=== PATIENT | male | born 2000 | race Caucasian/White ===

== ENCOUNTER 2024-10-24 00:01 | Emergency (ER) | payer BC ==
--- NOTE | 2024-10-24 00:19 | ERPHSYRPT ---
- History of Present Illness Time Seen by Provider: 10/24/24 00:19 Source: patient Exam Limitations: no limitations Allergies/Adverse Reactions: No Known Drug Allergies Allergy (Verified 10/24/24 00:24) Home Medications: No Reportable Medications [No Reported Medications] 10/24/24 [History] Hx Tetanus, Diphtheria Vaccination/Date Given: Yes Hx Influenza Vaccination/Date Given: No Hx Pneumococcal Vaccination/Date Given: No - Past Medical History Pertinent Past Medical History: Yes Neurological History: No Pertinent History ENT History: No Pertinent History Cardiac History: No Pertinent History Respiratory History: No Pertinent History Endocrine Medical History: No Pertinent History Musculoskeletal History: No Pertinent History GI Medical History: Irritable Bowel History: No Pertinent History Psycho-Social History: No Pertinent History Male Reproductive Disorders: No Pertinent History Other Medical History: LACTOSE INTOLERANT. BLOOD IN STOOL FOR ABOUT DECEMBER. HYPOGLYCEMIA AT TIMES - Past Surgical History Past Surgical History: Yes Neuro Surgical History: No Pertinent History Cardiac: No Pertinent History Respiratory: No Pertinent History Gastrointestinal: No Pertinent History Genitourinary: No Pertinent History Musculoskeletal: No Pertinent History Male Surgical History: No Pertinent History Other Surgical History: COLONSCOPY/EGD - Social History Smoking Status: Never smoker Exposure to second hand smoke: No Drug Use: none Patient Lives Alone: No - Nursing Vital Signs Nursing Vital Signs: Initial Vital Signs Temperature 98.6 F 10/24/24 00:02 Pulse Rate 125 H 10/24/24 00:02 Respiratory Rate 18 10/24/24 00:02 Blood Pressure 153/92 10/24/24 00:02 O2 Sat by Pulse Oximetry 96 10/24/24 00:02 Pain Scale Pain Intensity 5 Ordered Tests: Active Orders 24 hr Category Date Time Status CERVICAL SPINE WO CONTRAST [CT] Stat Exams 10/24/24 00:19 Completed FACIAL BONES WO CONTRAST [CT] Stat Exams 10/24/24 00:19 Completed HEAD WITHOUT CONTRAST [CT] Stat Exams 10/24/24 00:19 Completed ETHYL ALCOHOL Stat Lab 10/24/24 00:45 Completed Medication Summary Discontinued Medications Generic Name Dose Route Start Last Admin Trade Name Freq PRN Reason Stop Dose Admin Acetaminophen 975 mg 10/24/24 00:21 10/24/24 00:31 Acetaminophen 325 Mg Tablet PO 10/24/24 00:22 975 mg STAT STA Administration Acetaminophen Confirm 10/24/24 00:31 Acetaminophen 325 Mg Tablet Administered 10/24/24 00:32 Dose 975 mg .ROUTE .STK-MED ONE Lidocaine HCl Confirm 10/24/24 02:09 Lidocaine Hcl 1% 20 Ml Mdv 20 Ml Ml Administered 10/24/24 02:10 Dose 10 ml .ROUTE .STK-MED ONE Lab/Rad Data: Laboratory Results 10/24/24 Range/Units 00:45 Ethyl Alcohol 316 H (0-10) mg/dL - Departure Departure Disposition: Long-Term/Shelter Clinical Impression: Abrasion head, Traumatic hematoma of face, Post-traumatic headache, Alcohol intoxication Condition: Good Critical Care Time: No Instructions: Concussion, Adult (DC), Head Injury in Adults (DC)
[2024-10-24 00:21] VITALS: RESP 18; TEMP 98.6
[2024-10-24] MEDS: TYLENOL 325 MG PO STA (00:31)
[2024-10-24] MEDS ORDERED: TYLENOL 325 MG ONE (00:31)
--- NOTE | 2024-10-24 01:53 | XRAY ---
CLINICAL HISTORY: facial trauma, headache COMPARISON: - TECHNIQUE: Computed tomography of the cervical spine performed without intravenous contrast. Contiguous axial images were obtained from the skull base to T2, with sagittal and coronal reformatted images reconstructed from the axial data. CT scan was performed according to ALARA (as low as reasonably achievable). FINDINGS: Straightening of spine noted likely due to muscular spasm. Mild reduction in the heights of C5 and C6 vertebra. The rest of the cervical vertebral bodies are normal in height and alignment, with no evidence of fracture or subluxation. Lateral masses of C1 are symmetrical, and the dens is intact. Prevertebral soft tissues are not widened. The remaining suprahyoid and infrahyoid soft tissues in the neck are unremarkable. C2-C3: No disc bulge, mass effect on the cord or neuroforaminal narrowing. C3-C4 : Mild left uncovertebral arthropathy causing left subarticular recess and neural foraminal narrowing. No disc bulge, mass effect on the cord or right neuroforaminal narrowing. C4-C5: Mild left uncovertebral arthropathy causing left subarticular recess and neural foraminal narrowing. No disc bulge, mass effect on the cord or right neuroforaminal narrowing. C5-C6: Mild posterior disc bulge causing mild bilateral neural foraminal narrowing, No mass effect on the cord. C6-C7: No disc bulge, mass effect on the cord or neuroforaminal narrowing.C7-T1: No disc bulge, mass effect on the cord or neuroforaminal narrowing. IMPRESSION: 1. No acute fracture or subluxation in the cervical spine. 2. Mild cervical spondylosis. 3. Mild left uncovertebral arthropathy at C3-C4 and C4-C5, causing left subarticular recess and neural foraminal narrowing. 4. Mild posterior disc bulge at C5-C6 with mild bilateral neural foraminal narrowing, without mass effect on the cord. Electronically Signed by: Jerardo Álvarez MD. (10/24/2024 01:50:31 EST)
--- NOTE | 2024-10-24 01:59 | XRAY ---
CLINICAL HISTORY: facial trauma, headache COMPARISON: - TECHNIQUE: Multiple axial images are obtained from the skull base to the vertex without contrast. CT scan was performed according to ALARA (as low as reasonable achievable). FINDINGS: The brain shows normal morphology, attenuation, and volume for age. No evidence of space occupying lesion, hemorrhage, edema, mass effect, midline shift, extra axial collection, or hydrocephalus is noted. Ventricles, sulci, and basal cisterns are symmetric and normal in size and configuration.The hansen-white matter differentiation is preserved.Soft tissue swelling with stranding of thickness measuring 1.5 cm extending for a width of 4 cm noted over left periorbital region with a possibly soft tissue hematoma measuring 1 x 1.5 cm. A few air foci noted in the soft tissue planes outside the left globe.Orbital contents are within normal limits.Visualized paranasal sinuses and mastoid air cells are well aerated. Bony structures are intact. 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 IMPRESSION: 1. No evidence of acute intracranial abnormality is demonstrated. 2. Left periorbital swelling with a possible small hematoma and without evidence of adjacent globe or bony injury. Electronically Signed by: Jerardo Álvarez MD. (10/24/2024 01:55:41 EST)
--- NOTE | 2024-10-24 02:01 | XRAY ---
CLINICAL HISTORY: facial trauma, headache COMPARISON: - TECHNIQUE: Computed tomography of the orbits/face was performed without intravenous contrast. Contiguous axial images were obtained. Reformatted coronal and sagittal images were also reviewed. CT scan was performed according to ALARA (as low as reasonably achievable). ? FINDINGS: Left periorbital edema and edema noted measuring 11 mm in maximum thickness. No acute facial fractures. Mucosal thickening is noted in bilateral maxillary sinuses. The rest of the paranasal sinuses and mastoid air cells are clear. The globes, optic nerves, extraocular muscles and retro-orbital fat are grossly unremarkable. Reformatted imaging demonstrates the intact roof and floor of the orbits. Included portions of the mandible are intact. The included intracranial substances and airway are unremarkable. IMPRESSION: No acute facial fractures. Left periorbital hematoma and edema. Bilateral maxillary sinusitis. Electronically Signed by: Jerardo Álvarez MD. (10/24/2024 01:58:12 EST)
[2024-10-24] MEDS ORDERED: XYLOCAINE 1% HCL 20 ML MDV ONE (02:09)
[2024-10-24 02:33] VITALS: BP 128/76; PULSE 102; O2SAT 99
== END 2024-10-24 02:26 | disposition home or self-care (01) ==
LOC: ED 00:01
DX: S00.91XA Abrasion of unspecified part of head, initial encounter (principal); S00.83XA Contusion of other part of head, initial encounter; G44.309 Post-traumatic headache, unspecified, not intractable; F10.929 Alcohol use, unspecified with intoxication, unspecified
CPT/HCPCS: 36415; 70450; 70486; 72125; 82077; 99284; A9270-GY